=== PATIENT | female | born 2000 | race Caucasian/White ===

== ENCOUNTER → 2022-12-21 | Outpatient (CLI) | payer OTHER ==
[2022-12-21 18:04] LABS: HEMATOCRIT 35.5 % (36.0-47.0); HEMOGLOBIN 12.1 g/dl (12.0-15.5); MEAN CORPUSCULAR HEMOGLOBIN 31.9 pg (27.0-33.0); MEAN CORPUSCULAR HGB CONC 34.1 g/dl (32.0-36.5); MEAN CORPUSCULAR VOLUME 93.7 fl (80.0-96.0); PLATELET COUNT, AUTOMATED 327 10^3/uL (150-450); RED BLOOD COUNT 3.79 10^6/uL (4.00-5.40); WHITE BLOOD COUNT 11.7 10^3/uL (4.0-10.0)
[2022-12-21 18:57] LABS: HIV 1&2 SCREEN NEGATIVE (NEGATIVE)
[2022-12-21 19:05] LABS: HEPATITIS C VIRUS ABY INDEX < 0.0 INDEX (<0.8)
[2022-12-21 19:28] LABS: GC DNA AMPLIFICATION NEGATIVE (NEGATIVE)
== END ==
LOC: M PLALAB 16:03
PROVIDERS: ATTEND Advanced Practice Midwife
DX: Z34.01 Encounter for supervision of normal first pregnancy, first trimester (principal)

== ENCOUNTER 2023-01-09 20:12 | Emergency (ER) | payer OTHER ==
[~2023-01-09] VITALS: Ht 162.6 cm; Wt 54.0 kg
[2023-01-09 21:10] LABS: APPEARANCE, URINE HAZY (CLEAR); BACTERIA, URINE AUTO 1+ (NEGATIVE); BILIRUBIN, URINE AUTO NEGATIVE (NEGATIVE); BLOOD, URINE BLOOD NEGATIVE (NEGATIVE); COLOR, URINE YELLOW (YELLOW); GLUCOSE, URINE (UA) AUTO NEGATIVE (NEGATIVE); KETONE, URINE AUTO 1+ mg/dL (NEGATIVE); LEUKOCYTE ESTERASE, URINE AUTO TRACE (NEGATIVE); MUCUS, URINE SMALL (NEGATIVE); NITRITE, URINE AUTO NEGATIVE (NEGATIVE); PROTEIN, URINE AUTO NEGATIVE (NEGATIVE); RBC, URINE AUTO 2 /HPF (0-3); SPECIFIC GRAVITY URINE AUTO 1.019 (1.002-1.035); SQUAMOUS EPITHELIAL CELL UR AU 2 /HPF (0-6); UROBILINOGEN, URINE AUTO 0.2 mg/dL (0.0-2.0); WBC, URINE AUTO 15 /HPF (0-3)
[2023-01-09 21:15] LABS: HEMATOCRIT 37.8 % (36.0-47.0); HEMOGLOBIN 13.2 g/dl (12.0-15.5); MEAN CORPUSCULAR HGB CONC 34.9 g/dl (32.0-36.5); MEAN CORPUSCULAR VOLUME 91.7 fl (80.0-96.0); PLATELET COUNT, AUTOMATED 333 10^3/uL (150-450); RED BLOOD COUNT 4.12 10^6/uL (4.00-5.40); WHITE BLOOD COUNT 13.4 10^3/uL (4.0-10.0)
[2023-01-09 21:42] LABS: BLOOD UREA NITROGEN 9 MG/DL (9-23); CALCIUM LEVEL 9.2 MG/DL (8.5-10.1); CARBON DIOXIDE LEVEL 26 MMOL/L (20-31); CHLORIDE LEVEL 101 MMOL/L (98-107); CREATININE FOR GFR 0.44 MG/DL (0.55-1.30); GLOMERULAR FILTRATION RATE > 60.0 (>60); GLUCOSE, FASTING 91 MG/DL (60-100); POTASSIUM SERUM 3.8 MMOL/L (3.5-5.1); SODIUM LEVEL 135 MMOL/L (136-145)
[2023-01-09 22:11] LABS: HCG, SERUM QUALITATIVE POSITIVE (NEGATIVE)
[2023-01-09 23:10] LABS: HCG, SERUM QUANTITATIVE 127565.9 MIU/ML (<4.2)
[2023-01-10] MEDS ORDERED: METOCLOPRAMIDE INJ 10MG/2ML VIAL IV ONE (00:55)
[2023-01-10] MEDS ORDERED: NS 1,000 ML IV ONE (00:55)
[2023-01-10] MEDS ORDERED: PROM25TA12 PO (02:07)
[2023-01-10 02:18] VITALS: BP 113/58; TEMP 97.8; O2SAT 95
[2023-01-11] MEDS ORDERED: UNRESOLVED CLARIFICATION ENTRY XX SCH (00:01)
== END 2023-01-10 02:21 | disposition home or self-care (01) ==
LOC: M ED 20:12
DX: O21.9 Vomiting of pregnancy, unspecified (principal); Z3A.12 12 weeks gestation of pregnancy
CPT/HCPCS: 76801; 80048; 81001; 84702; 84703; 85027; 96374; 99284; J2765

== ENCOUNTER → 2023-01-18 | Outpatient (CLI) | payer OTHER ==
[~2023-01-18] MED LIST: PROM25TA12 PO
== END ==
LOC: M PLALAB 15:08
PROVIDERS: ATTEND Advanced Practice Midwife
DX: Z34.01 Encounter for supervision of normal first pregnancy, first trimester (principal); Z3A.00 Weeks of gestation of pregnancy not specified

== ENCOUNTER → 2023-02-21 | Outpatient (REF) | payer OTHER | LOC: M SFHCWAGY 16:57 | PROVIDERS: ATTEND Obstetrics & Gynecology | DX: Z34.92 Encounter for supervision of normal pregnancy, unspecified, second trimester (principal) ==

== ENCOUNTER → 2023-02-23 | Outpatient (CLI) | payer OTHER | LOC: M RAD 08:30 | PROVIDERS: ATTEND Obstetrics & Gynecology | DX: Z34.92 Encounter for supervision of normal pregnancy, unspecified, second trimester (principal) ==

== ENCOUNTER → 2023-05-03 | Outpatient (CLI) | payer OTHER | LOC: M WHC 07:41 | PROVIDERS: ATTEND Obstetrics & Gynecology | DX: Z36.2 Encounter for other antenatal screening follow-up (principal) ==

== ENCOUNTER 2023-05-06 14:51 | Outpatient (CLI) | payer OTHER ==
[~2023-05-06] VITALS: Ht 162.6 cm; Wt 63.8 kg
[2023-05-06] MEDS ORDERED: PRENTAB9 PO (15:13)
[2023-05-06] MEDS ORDERED: OMEP-173 PO (15:13)
[2023-05-06] MEDS ORDERED: HOME MED LIST COMPLETE! XX SCH (15:15)
[2023-05-06 15:20] VITALS: BP 113/56
[2023-05-06] MEDS ORDERED: PANTOPRAZOLE 40MG TAB (PROTONIX) PO ONE (16:30)
[2023-05-06] MEDS ORDERED: ACETAMINOPHEN 500 MG TAB PO PRN (16:30)
[2023-05-06] MEDS ORDERED: ONDANSETRON 4MG TAB PO PRN (16:35)
[2023-05-06] MEDS ORDERED: MAALOX 30 ML SUSP *UDC PO ONE (20:00)
[2023-05-06] MEDS ORDERED: BICITRA 30ML SOLN UDC PO ONE (20:00)
[2023-05-06] MEDS ORDERED: SUCRALFATE 1 GM TAB PO ONE (20:00)
[2023-05-06] MEDS ORDERED: METOCLOPRAMIDE 10MG TAB PO ONE (20:00)
[2023-05-06 20:36] VITALS: BP 120/57
== END 2023-05-06 20:51 | disposition home or self-care (01) ==
LOC: M LDO 14:51
PROVIDERS: ATTEND Obstetrics & Gynecology
DX: O99.613 Diseases of the digestive system complicating pregnancy, third trimester (principal); K21.9 Gastro-esophageal reflux disease without esophagitis; Z3A.28 28 weeks gestation of pregnancy
CPT/HCPCS: 59025; 81001; G0463

== ENCOUNTER 2023-07-04 20:05 | Inpatient (IN) | payer OTHER ==
[~2023-07-04] VITALS: Ht 162.6 cm; Wt 75.2 kg
[~2023-07-04 20:05] MED LIST changes: -LABE20TAB PO
[2023-07-04 20:27] VITALS: BP 168/95
[2023-07-04 20:36] VITALS: BP 147/97
[2023-07-04 21:05] LABS: HEMATOCRIT 29.1 % (36.0-47.0); HEMOGLOBIN 9.6 g/dl (12.0-15.5); MEAN CORPUSCULAR HEMOGLOBIN 29.4 pg (27.0-33.0); MEAN CORPUSCULAR VOLUME 89.3 fl (80.0-96.0); PLATELET COUNT, AUTOMATED 338 10^3/uL (150-450); RED BLOOD COUNT 3.26 10^6/uL (4.00-5.40); WHITE BLOOD COUNT 11.8 10^3/uL (4.0-10.0)
[2023-07-04 21:35] LABS: TOTAL PROTEIN,RANDOM URINE 45.9 MG/DL (0.0-14.0)
[2023-07-04 21:37] LABS: URIC ACID 3.4 MG/DL (3.1-7.8)
[2023-07-04 21:39] LABS: LDH LACTATE DEHYDROGENASE 206 U/L (120-246)
[2023-07-04 21:40] LABS: ALT/SGPT < 9 U/L (7.0-40); AST/SGOT 14 U/L (<34); BILIRUBIN,TOTAL 0.3 MG/DL (0.3-1.2); CREATININE FOR GFR 0.45 MG/DL (0.55-1.30); GLOMERULAR FILTRATION RATE > 60.0 (>60)
[2023-07-04 21:40] LABS: CREATININE,RANDOM URINE 16.3 MG/DL
[2023-07-04] MEDS ORDERED: PENICILLIN G POTASSIUM 5 MU IV 5 MU in D5W MINI-BAG PLUS 100 ML IV STA (21:49)
[2023-07-04] MEDS ORDERED: OXYTOCIN INJ 10UNITS/ML 1ML VIAL IM PRN (21:50)
[2023-07-04] MEDS ORDERED: LIDOCAINE 1% MDV 20ML VIAL INFIL PRN (21:50)
[2023-07-04] MEDS ORDERED: OXYTOCIN DRIP 30 UNITS in IV 1 EA IV PRN ×4 (21:50)
[2023-07-04] MEDS ORDERED: TRANEXAMIC ACID INJection 1,000 MG in NS 100 ML IV PRN (21:50)
[2023-07-04] MEDS ORDERED: CARBOPROST TROMETHAMINE 250 MCG/ML AMP IM PRN (21:50)
[2023-07-04] MEDS: miSOPROStol 50MCG 1/2 TABLET PO SCH (22:40)
[2023-07-04 22:47] VITALS: BP 142/96
[2023-07-04 23:17] VITALS: BP 150/84
[2023-07-04 23:47] VITALS: BP 148/92
[2023-07-05] VITALS (54 sets, daily range): BP systolic 126–170; BP diastolic 70–103
[2023-07-05] MEDS ORDERED: PEN G POT 3,000,000 UNIT/50 ML 3,000,000 UNIT in IV 1 EA IV SCH ×2 (01:50→22:00)
[2023-07-05] MEDS: miSOPROStol 50MCG 1/2 TABLET PO SCH ×2 (03:03→08:28)
[2023-07-05] MEDS ORDERED: OMEPRAZOLE 20MG CAP PO ONE ×2 (10:40→20:05)
[2023-07-05] MEDS ORDERED: HOME MED LIST COMPLETE! XX SCH (12:25)
[2023-07-05] MEDS ORDERED: LR 1,000 ML IV SCH (14:10)
[2023-07-05] MEDS ORDERED: OXYTOCIN DRIP 30 UNITS in IV 1 EA IV SCH (14:10)
[2023-07-05 15:58] LABS: HEMATOCRIT 32.3 % (36.0-47.0); HEMOGLOBIN 10.6 g/dl (12.0-15.5); MEAN CORPUSCULAR HEMOGLOBIN 29.4 pg (27.0-33.0); MEAN CORPUSCULAR HGB CONC 32.8 g/dl (32.0-36.5); MEAN CORPUSCULAR VOLUME 89.5 fl (80.0-96.0); PLATELET COUNT, AUTOMATED 378 10^3/uL (150-450); RED BLOOD COUNT 3.61 10^6/uL (4.00-5.40); WHITE BLOOD COUNT 15.4 10^3/uL (4.0-10.0)
[2023-07-05] MEDS ORDERED: EPIDURAL/PCA KEYS XX PRN (16:40)
[2023-07-05] MEDS ORDERED: LR 500 ML IV PRN (16:40)
[2023-07-05] MEDS ORDERED: ePHEDrine SULFATE 25 MG/5 ML(5MG/ML) SYRINGE IVP PRN (16:40)
[2023-07-05] MEDS ORDERED: FENTANYL/ROPIVACAINE/NACL BAG 100 ML EPIDURAL SCH (16:40)
[2023-07-05] MEDS ORDERED: NALOXONE INJ 0.4MG/1ML VIAL IV PRN (16:40)
[2023-07-05] MEDS ORDERED: diphenhydrAMINE 50MG/ML VIAL IV PRN (16:40)
[2023-07-05] MEDS ORDERED: ONDANSETRON 4MG 2ML VIAL IV PRN (16:40)
[2023-07-05] MEDS ORDERED: FENTANYL 2MCG/ML ROPIVACAINE 0.2% IN 0.9% NACL 100ML IVBAG As Ordered ONE (16:43)
[2023-07-05] MEDS ORDERED: PENICILLIN G POTASSIUM 5 MU IV 5 MU in D5W MINI-BAG PLUS 100 ML IV STA (17:50)
[2023-07-05] MEDS ORDERED: DOCUSATE SODIUM 100MG CAPSULE PO PRN (22:35)
[2023-07-05] MEDS ORDERED: IBUPROFEN 600MG TAB PO PRN (22:35)
[2023-07-05] MEDS ORDERED: DIBUCAINE 1% OINTMENT 30GM TOP PRN (22:35)
[2023-07-05] MEDS ORDERED: RHOGAM 300MCG (1500IU) INJ IM SCH (22:35)
[2023-07-05] MEDS ORDERED: METHYLERGONOVINE MALEATE 0.2 MG TAB PO PRN (22:35)
[2023-07-06] VITALS: BP 172/112; O2SAT 98
[2023-07-06] MEDS: LABETALOL 200 MG TAB PO SCH ×3 (00:38→20:04)
[2023-07-06] MEDS: IBUPROFEN 800 MG TAB PO PRN ×2 (00:38→11:16)
[2023-07-06] MEDS: ACETAMINOPHEN TAB 650MG DOSE (2X325MG) PO PRN ×2 (00:39→08:11)
[2023-07-06 01:00] VITALS: BP 135/82
[2023-07-06 06:00] VITALS: BP 133/78; O2SAT 98
[2023-07-06] MEDS: PRENATAL VITAMINS CHEWABLE TABLET PO SCH (08:10)
[2023-07-06] MEDS: OMEPRAZOLE 20MG CAP PO SCH ×2 (08:10→20:01)
[2023-07-06] MEDS ORDERED: INFLUENZA QUADRIVALENT PF VACCINE 0.5ML SYRINGE IM.IMMUN ONE (15:00)
[2023-07-06] MEDS ORDERED: BOOSTRIX VACCINE (TETANUS/DIPHTH/ACEL. PERTUSSIS) 0.5ML SYR IM.IMMUN ONE (15:15)
[2023-07-06] MEDS: ACETAMINOPHEN 500 MG TAB PO PRN (15:29)
[2023-07-06 18:00] VITALS: BP 166/99; O2SAT 98
[2023-07-06] MEDS ORDERED: ONDANSETRON 4MG ORAL DISINTEGRATING TAB PO ONE (18:30)
[2023-07-06] MEDS ORDERED: PERCOCET 5MG/325MG TAB PO ONE (18:30)
[2023-07-07] MEDS: IBUPROFEN 800 MG TAB PO PRN ×2 (03:19→11:05)
[2023-07-07 06:11] VITALS: BP 140/95; O2SAT 99
[2023-07-07] MEDS: PRENATAL VITAMINS CHEWABLE TABLET PO SCH (08:55)
[2023-07-07] MEDS: OMEPRAZOLE 20MG CAP PO SCH (08:56)
[2023-07-07] MEDS: ACETAMINOPHEN 500 MG TAB PO PRN ×2 (08:56→15:27)
[2023-07-07 08:57] VITALS: BP 137/83
[2023-07-07] MEDS: LABETALOL 200 MG TAB PO SCH (08:57)
[2023-07-07] MEDS ORDERED: MEASLES,MUMPS,RUBELLA VACCINE INJ (MMR-II) SC.IMMUN ONE (09:00)
[2023-07-07] MEDS ORDERED: BOOSTRIX VACCINE (TETANUS/DIPHTH/ACEL. PERTUSSIS) 0.5ML SYR IM.IMMUN ONE (09:00)
[2023-07-07] MEDS ORDERED: INFLUENZA QUADRIVALENT PF VACCINE 0.5ML SYRINGE IM.IMMUN ONE (09:00)
[2023-07-07 09:03] VITALS: BP 137/83
[2023-07-07] MEDS ORDERED: LABE20TAB PO (09:13)
== END 2023-07-07 15:30 | disposition home or self-care (01) | DRG 807 ==
LOC: M LDO 20:05 → M LDI 22:00 → M OBS 07-05 23:45
PROVIDERS: ADMIT Advanced Practice Midwife; ATTEND Specialist
PROC: 3E0P7GC Introduction of Other Therapeutic Substance into Female Reproductive, Via Natural or Artificial Opening (ICD-10-PCS; 2023-07-04)
PROC: 0HQ9XZZ Repair Perineum Skin, External Approach (ICD-10-PCS; 2023-07-04)
PROC: 10E0XZZ Delivery of Products of Conception, External Approach (ICD-10-PCS; principal; 2023-07-05)
DX: O14.94 Unspecified pre-eclampsia, complicating childbirth (principal); Z37.0 Single live birth; Z79.899 Other long term (current) drug therapy; Z3A.37 37 weeks gestation of pregnancy; O69.81X0 Labor and delivery complicated by cord around neck, without compression, not applicable or unspecified; O70.0 First degree perineal laceration during delivery

== ENCOUNTER → 2023-07-04 | Outpatient (CLI) | payer OTHER ==
[~2023-07-04] MED LIST changes: +OMEP-173 PO; +PRENTAB9 PO
[2023-07-04 14:16] LABS: HEMATOCRIT 31.9 % (36.0-47.0); HEMOGLOBIN 10.3 g/dl (12.0-15.5); MEAN CORPUSCULAR HEMOGLOBIN 29.1 pg (27.0-33.0); MEAN CORPUSCULAR HGB CONC 32.3 g/dl (32.0-36.5); MEAN CORPUSCULAR VOLUME 90.1 fl (80.0-96.0); PLATELET COUNT, AUTOMATED 344 10^3/uL (150-450); RED BLOOD COUNT 3.54 10^6/uL (4.00-5.40); WHITE BLOOD COUNT 9.8 10^3/uL (4.0-10.0)
[2023-07-04 14:36] LABS: URIC ACID 3.5 MG/DL (3.1-7.8)
[2023-07-04 14:38] LABS: LDH LACTATE DEHYDROGENASE 195 U/L (120-246)
[2023-07-04 14:39] LABS: ALT/SGPT < 9 U/L (7.0-40); AST/SGOT 13 U/L (<34); BILIRUBIN,TOTAL 0.4 MG/DL (0.3-1.2); CREATININE FOR GFR 0.51 MG/DL (0.55-1.30); CREATININE,RANDOM URINE 162.5 MG/DL; GLOMERULAR FILTRATION RATE > 60.0 (>60)
[2023-07-04 14:45] LABS: TOTAL PROTEIN,RANDOM URINE 239.8 MG/DL (0.0-14.0)
== END ==
LOC: M PLALAB 11:28
PROVIDERS: ATTEND Obstetrics & Gynecology
DX: O16.9 Unspecified maternal hypertension, unspecified trimester (principal); Z3A.36 36 weeks gestation of pregnancy

== ENCOUNTER → 2023-07-04 | Outpatient (REF) | payer OTHER ==
[~2023-07-04] MED LIST changes: +LABE20TAB PO
== END ==
LOC: M PLALAB 10:03
PROVIDERS: ATTEND Obstetrics & Gynecology
DX: Z36.89 Encounter for other specified antenatal screening (principal); Z3A.36 36 weeks gestation of pregnancy

== ENCOUNTER → 2024-04-01 | Outpatient (REF) | payer OTHER ==
[~2024-04-01] MED LIST changes: +LABE20TAB PO
[2024-04-02 11:37] LABS: CHLAMYDIA TRACHOMATIS NAA NOT DETECTED (NOT DETECTED); Neisseria gonorrhoeae NAA NOT DETECTED (NOT DETECTED)
[2024-04-02 11:51] LABS: BVAB 2 POSITIVE (NEGATIVE); CANDIDA ALBICANS NAA NOT DETECTED (NOT DETECTED); CANDIDA GLABRATA NAA NOT DETECTED (NOT DETECTED); TRICH VAG BY NAA NOT DETECTED (NOT DETECTED)
== END ==
LOC: M SFHCWAGY 12:18
PROVIDERS: ATTEND Nurse Practitioner Family
DX: R10.2 Pelvic and perineal pain (principal)

== ENCOUNTER → 2024-04-14 | Outpatient (CLI) | payer OTHER | LOC: M WHC 07:23 | PROVIDERS: ATTEND Nurse Practitioner Family | DX: R10.2 Pelvic and perineal pain (principal) ==

== ENCOUNTER 2024-06-10 19:54 | Emergency (ER) | payer OTHER ==
[~2024-06-10] VITALS: Ht 162.6 cm; Wt 56.2 kg
[2024-06-10 20:09] VITALS: TEMP 97.6
[2024-06-11 03:11] LABS: HCG, SERUM QUALITATIVE NEGATIVE (NEGATIVE)
[2024-06-11 03:21] LABS: AMPHETAMINES LEVEL URINE NEGATIVE (NEGATIVE); BARBITURATES URINE NEGATIVE (NEGATIVE); BENZODIAZEPINES URINE NEGATIVE (NEGATIVE); CANNABINOIDS URINE NEGATIVE (NEGATIVE); COCAINE METABOLITE URINE NEGATIVE (NEGATIVE); METHADONE URINE NEGATIVE (NEGATIVE); OPIATES URINE NEGATIVE (NEGATIVE); PHENCYCLIDINE URINE NEGATIVE (NEGATIVE)
[2024-06-11] MEDS: predniSONE 20 MG TAB PO ONE (04:44)
[2024-06-11 04:50] VITALS: BP 119/65; O2SAT 100
== END 2024-06-11 04:51 | disposition home or self-care (01) ==
LOC: M ED 19:54
DX: S39.012A Strain of muscle, fascia and tendon of lower back, initial encounter (principal); Y92.9 Unspecified place or not applicable; Y93.9 Activity, unspecified; Y99.9 Unspecified external cause status; Z79.810 Long term (current) use of selective estrogen receptor modulators (SERMs); Z79.899 Other long term (current) drug therapy
CPT/HCPCS: 36415; 72110; 80307; 81001; 84703; 99283; J7512

== ENCOUNTER 2024-09-02 16:31 | Emergency (ER) | payer OTHER ==
[~2024-09-02] VITALS: Ht 162.6 cm; Wt 55.0 kg
[2024-09-02] MEDS ORDERED: NORG1TAB38 (16:41)
[2024-09-02] MEDS ORDERED: IRON27TA2 PO (16:41)
[2024-09-02 17:58] LABS: BASO % 0.4 % (0.0-1.0); EOS # 0.1 10^3/uL (0.0-0.5); EOS % 0.9 % (0.0-3.0); HEMATOCRIT 35.7 % (36.0-47.0); HEMOGLOBIN 12.1 g/dl (12.0-15.5); LYMPH # 2.9 10^3/uL (1.5-5.0); LYMPH % 31.1 % (24.0-44.0); MEAN CORPUSCULAR HEMOGLOBIN 31.8 pg (27.0-33.0); MEAN CORPUSCULAR HGB CONC 33.9 g/dl (32.0-36.5); MEAN CORPUSCULAR VOLUME 93.9 fl (80.0-96.0); MONO # 0.7 10^3/uL (0.0-0.8); MONO % 7.2 % (2.0-8.0); NEUTROPHILS # 5.6 10^3/uL (1.5-8.5); NEUTROPHILS % 60.2 % (36.0-66.0); PLATELET COUNT, AUTOMATED 316 10^3/uL (150-450); WHITE BLOOD COUNT 9.3 10^3/uL (4.0-10.0)
[2024-09-02] MEDS: ACETAMINOPHEN 325 MG TAB PO ONE (18:05)
[2024-09-02] MEDS: ONDANSETRON 4MG ORAL DISINTEGRATING TAB PO ONE (18:05)
[2024-09-02 18:21] LABS: ALBUMIN 3.7 G/DL (3.2-5.2); ALKALINE PHOSPHATASE 50 U/L (35-104); ALT/SGPT 20 U/L (7.0-40); AST/SGOT 27 U/L (<34); BILIRUBIN,DIRECT < 0.1 MG/DL (<0.4); BILIRUBIN,TOTAL 0.2 MG/DL (0.3-1.2); MAGNESIUM LEVEL 1.9 MG/DL (1.8-2.4); TOTAL PROTEIN 6.9 G/DL (5.7-8.2)
[2024-09-02 18:24] LABS: FREE T4 1.16 NG/DL (0.89-1.76); THYROID STIMULATING HORMONE 1.596 uIU/ML (0.55-4.78)
[2024-09-02] MEDS: KETOROLAC 30 MG/ML 1ML VIAL IV ONE (19:44)
[2024-09-02 19:50] LABS: CK-MB VALUE MASS < 1.0 NG/ML (<3.6)
[2024-09-02 19:51] LABS: CPK CREATINE PHOSPHOKINASE 66 U/L (34-145); MB/CK RELATIVE INDEX 1.51 (< OR =4)
[2024-09-02] MEDS ORDERED: IBUP-1022 PO (20:28)
[2024-09-02 20:32] VITALS: BP 99/61; TEMP 97.5; O2SAT 100
== END 2024-09-02 20:36 | disposition home or self-care (01) ==
LOC: M ED 16:31
DX: R51.9 Headache, unspecified (principal); N93.9 Abnormal uterine and vaginal bleeding, unspecified; Z79.1 Long term (current) use of non-steroidal anti-inflammatories (NSAID); Z79.899 Other long term (current) drug therapy; Z79.3 Long term (current) use of hormonal contraceptives
CPT/HCPCS: 71046; 80047; 80076; 82550; 82553; 83735; 84439; 84443; 84484; 84702; 85025; 85379; 93041; 96374; 99285; J1885

== ENCOUNTER 2024-10-24 07:59 | Day surgery (SDC) | payer OTHER ==
[~2024-10-24] VITALS: Ht 162.6 cm; Wt 54.4 kg
[~2024-10-24 07:59] MED LIST changes: +IBUP-1022 PO; +IRON27TA2 PO; +NORG1TAB38 PO
[2024-10-24 08:46] LABS: HEMATOCRIT 37.8 % (36.0-47.0); HEMOGLOBIN 12.8 g/dl (12.0-15.5); MEAN CORPUSCULAR HEMOGLOBIN 31.4 pg (27.0-33.0); MEAN CORPUSCULAR HGB CONC 33.9 g/dl (32.0-36.5); MEAN CORPUSCULAR VOLUME 92.9 fl (80.0-96.0); PLATELET COUNT, AUTOMATED 322 10^3/uL (150-450); RED BLOOD COUNT 4.07 10^6/uL (4.00-5.40); WHITE BLOOD COUNT 6.7 10^3/uL (4.0-10.0)
[2024-10-24] MEDS ORDERED: LR 1,000 ML IV SCH ×2 (09:45→12:05)
[2024-10-24] MEDS ORDERED: ACETAMINOPHEN 1000MG/100ML IV BAG As Ordered ONE (09:59)
[2024-10-24] MEDS ORDERED: ONDANSETRON 4MG 2ML VIAL As Ordered ONE (09:59)
[2024-10-24] MEDS ORDERED: fentaNYL 100 MCG/2 ML INJECTION As Ordered ONE (09:59)
[2024-10-24] MEDS ORDERED: propofoL 200 MG/20 ML VIAL As Ordered ONE (09:59)
[2024-10-24] MEDS ORDERED: MIDAZOLAM INJ 2MG/2ML VIAL As Ordered ONE (09:59)
[2024-10-24] MEDS ORDERED: KETOROLAC 30 MG/ML 1ML VIAL As Ordered ONE (09:59)
[2024-10-24] MEDS ORDERED: LIDOCAINE 2% 100MG/5ML SDV (FOR ANES.) As Ordered ONE (10:00)
[2024-10-24] MEDS ORDERED: ROCURONIUM BROMIDE 50MG/5ML VIAL As Ordered ONE (10:00)
[2024-10-24] MEDS ORDERED: SUGAMMADEX SODIUM 500 MG/5 ML VIAL (BRIDION) As Ordered ONE (10:00)
[2024-10-24] MEDS ORDERED: IBUP-1022 PO (10:53)
[2024-10-24] MEDS ORDERED: OXYC1TAB23 PO (10:55)
[2024-10-24] MEDS ORDERED: fentaNYL 100 MCG/2 ML INJECTION IV PRN (12:05)
[2024-10-24] MEDS: oxyCODONE 5MG TAB PO PRN (12:41)
[2024-10-24] MEDS: ONDANSETRON 4MG 2ML VIAL IV PRN (12:41)
[2024-10-24] MEDS: HYDROMORPHONE HCL 0.5 MG/ 0.5 ML SYRINGE IV PRN (12:41)
[2024-10-24 13:59] VITALS: BP 112/61; TEMP 97.7; O2SAT 100
== END 2024-10-24 14:02 | disposition home or self-care (01) ==
LOC: M SDC 07:59
PROVIDERS: ATTEND Specialist
DX: N80.3C3 Endometriosis of bilateral uterosacral ligament(s), unspecified depth (principal); R10.2 Pelvic and perineal pain; Z79.3 Long term (current) use of hormonal contraceptives; F17.290 Nicotine dependence, other tobacco product, uncomplicated
CPT/HCPCS: 36415; 58662; 81025; 85027; J0131; J0665; J1100; J1171; J1885; J2250; J2405; J3010

== ENCOUNTER → 2025-02-16 | Outpatient (REF) | payer OTHER ==
[~2025-02-16] MED LIST changes: +CEPH500C PO; +OXYC1TAB23 PO; +SIME80CH6 PO
== END ==
LOC: M PLALAB 12:36
PROVIDERS: ATTEND Advanced Practice Midwife
DX: O03.4 Incomplete spontaneous abortion without complication (principal)

== ENCOUNTER → 2025-04-30 | Outpatient (CLI) | payer OTHER ==
[~2025-04-30] MED LIST changes: -IBUP-1022 PO; +IBUP600T42 PO
== END ==
LOC: M PLALAB 09:51
PROVIDERS: ATTEND Advanced Practice Midwife
DX: Z32.01 Encounter for pregnancy test, result positive (principal)

== ENCOUNTER → 2025-05-02 | Outpatient (CLI) | payer OTHER | LOC: M LAB 09:40 | PROVIDERS: ATTEND Advanced Practice Midwife | DX: Z32.01 Encounter for pregnancy test, result positive (principal) ==

== ENCOUNTER 2025-06-05 12:30 | Emergency (ER) | payer OTHER ==
[~2025-06-05] VITALS: Ht 162.6 cm; Wt 57.7 kg
[2025-06-05] MEDS: NEOSPORIN OINT 0.9 GM PKT TOP ONE (14:55)
[2025-06-05] MEDS: ACETAMINOPHEN 500 MG TAB PO ONE (16:44)
[2025-06-05] MEDS: LIDOCAINE W/EPINEPHrine 1% 20 ML VIAL SC ONE (18:22)
[2025-06-05 18:23] VITALS: TEMP 97.9
[2025-06-05] MEDS: ONDANSETRON 4MG ORAL DISINTEGRATING TAB PO ONE (18:30)
[2025-06-05] MEDS: MORPHINE 4 MG/ML 1 ML VIAL IV ONE (19:10)
[2025-06-05 20:03] VITALS: BP 116/66; O2SAT 98
== END 2025-06-05 20:21 | disposition home or self-care (01) ==
LOC: M ED 12:30
DX: S52.572A Other intraarticular fracture of lower end of left radius, initial encounter for closed fracture (principal); S52.612A Displaced fracture of left ulna styloid process, initial encounter for closed fracture; Y92.9 Unspecified place or not applicable; Y93.9 Activity, unspecified; Y99.9 Unspecified external cause status; W01.0XXA Fall on same level from slipping, tripping and stumbling without subsequent striking against object, initial encounter; Z3A.09 9 weeks gestation of pregnancy; Z88.8 Allergy status to other drugs, medicaments and biological substances; Z79.899 Other long term (current) drug therapy

== ENCOUNTER → 2025-06-22 | Outpatient (CLI) | payer OTHER ==
[2025-06-22 10:57] LABS: PLATELET COUNT, AUTOMATED 414 10^3/uL (150-450)
[2025-06-22 11:45] LABS: HIV 1&2 SCREEN NEGATIVE (NEGATIVE)
[2025-06-22 11:52] LABS: HEPATITIS C VIRUS ABY INDEX < 0.02 INDEX (<0.8)
[2025-06-22 12:13] LABS: Trichomonas vaginalis (AMP) NOT DETECTED (NEGATIVE)
[2025-06-22 12:37] LABS: GC DNA AMPLIFICATION NEGATIVE (NEGATIVE)
== END ==
LOC: M PLALAB 08:14
PROVIDERS: ATTEND Advanced Practice Midwife
DX: Z34.81 Encounter for supervision of other normal pregnancy, first trimester (principal)

== ENCOUNTER → 2025-06-22 | Outpatient (REF) | payer OTHER | LOC: M PLALAB 08:36 | PROVIDERS: ATTEND Advanced Practice Midwife | DX: Z34.81 Encounter for supervision of other normal pregnancy, first trimester (principal) ==